=== PATIENT | male | born 1965 ===

== ENCOUNTER 2017-09-02 16:16 | Emergency (ER) | payer OTHER ==
[2017-09-02 16:29] VITALS: BP 121/67; PULSE 72; RESP 16; TEMP 97.2; O2SAT 99
--- NOTE | 2017-09-02 19:02 | ED PDOC ---
HPI: Back Time Seen by Provider: 09/02/17 17:13 Chief Complaint (Nursing): Rib Injury Chief Complaint (Provider): back pain History Per: Patient History/Exam Limitations: no limitations Onset/Duration Of Symptoms: Days (6) Current Symptoms Are (Timing): Still Present Quality Of Discomfort: "Pain" Exacerbating Factor(s): Turning, Movement Additional History Per: Patient Additional Complaint(s): 52yo male with history of hypertension, presents to ED with complaints of left sided back pain, radiating to the front, present for the past 6 days. Patient states the pain is intermittent, achy and worse with laying down or movement. He denies any falls, injury, shortness of breath, nausea, vomiting, fever, chest pain, abdominal pain, dysuria, hematuria, palpitations, leg swelling, or calf pain. he also denies any recent long travels, periods of immobilizations, recent surgeries. Patient states he is compliant with his hypertension medication. He offers no other medical complaints. Past Medical History Reviewed: Historical Data, Nursing Documentation, Vital Signs Vital Signs: Last Vital Signs Temp 97.2 F L 09/02/17 16:27 Pulse 72 09/02/17 16:27 Resp 16 09/02/17 16:27 BP 121/67 09/02/17 16:27 Pulse Ox 99 09/02/17 16:27 - Medical History PMH: HTN - Surgical History Surgical History: No Surg Hx - Family History Family History: States: No Known Family Hx - Social History Current smoker - smoking cessation education provided: Yes Alcohol: None Drugs: Denies - Home Medications Home Medications: Ambulatory Orders Medication Instructions Recorded Meloxicam [Mobic] 15 mg PO DAILY #14 tab 09/02/17 Methocarbamol [Robaxin-750] 750 mg PO BID PRN #10 tab 09/02/17 - Allergies Allergies/Adverse Reactions: Allergies Allergy/AdvReac Type Severity Reaction Status Date / Time No Known Allergies Allergy Verified 09/02/17 16:27 Review of Systems ROS Statement: Except As Marked, All Systems Reviewed And Found Negative Constitutional: Negative for: Fever, Chills Cardiovascular: Negative for: Chest Pain Respiratory: Negative for: Shortness of Breath Gastrointestinal: Negative for: Nausea, Vomiting, Abdominal Pain Musculoskeletal: Positive for: Back Pain. Negative for: Leg Pain Neurological: Negative for: Weakness, Numbness Physical Exam - Reviewed Nursing Documentation Reviewed: Yes Vital Signs Reviewed: Yes - Physical Exam Comments: GENERAL APPEARANCE: Patient is awake, alert, oriented x 3, in no acute distress. Speaking in full sentences, respirations even and nonlabored. SKIN: Warm, dry; (-) cyanosis. EYES: (-) conjunctival pallor. ENMT: Mucous membranes moist. NECK: Supple, FROM (-) tenderness, (-) stiffness, (-) lymphadenopathy, (-) JVD. CHEST AND RESPIRATORY: (-) rash, (-) chest wall tenderness. Lungs: (-) rales , (-) rhonchi, (-) wheezes, (-) rub; breath sounds equal bilaterally. HEART AND CARDIOVASCULAR: (-) irregularity; (-) murmur, (-) gallop, (-) rub. ABDOMEN AND GI: Soft; (-) distention, (-) tenderness, (-) palpable pulsatile mass. BACK: (+)left parathoracic and left lateral rib tenderness (+) left posterior shoulder tenderness (?) left CVA tenderness (-) right CVA tenderness (-) midline tenderness EXTREMITIES: (-) deformity; (-) edema, (-) calf tenderness. (+) distal pulses. (+) FROM bilateral upper extremities with FROM. NEURO AND PSYCH: Mental status as above. Cranial nerves grossly intact; strength symmetric. - Laboratory Results Result Diagrams: 09/02/17 19:04 09/02/17 19:04 - ECG O2 Sat by Pulse Oximetry: 99 (RA) Pulse Ox Interpretation: Normal Medical Decision Making Medical Decision Making: Impression: Upper back pain, likely musculoskeletal Plan: -- Troponin -- CBC -- DDimer -- XR Ribs and Chest -- Flexeril 10 mg PO -- Tramadol 50 mg PO -- Toradol 30 mg IM Of note, patient states he took an Uber here and will not be driving home. Time: 1909 Urinalysis reviewed, negative for glucose, bilirubin, ketones, blood, nitrate or leuks. Time: 2010 XR Chest and Left ribs: no fracture, no dislocation, as read by PA. Upon re-evaluation, patient states he has minimal improvement in his pain. Time: 2099 Upon re-evaluation, patient resting comfortably in ER. He reports significant improvement in his pain. Labs reviewed and grossly unremarkable. Time: 2105 XR Chest and Left Ribs FINDINGS: Lungs: No consolidation. Pleural space: No pleural effusion. No pneumothorax. Heart: No cardiomegaly. Mediastinum: Unremarkable. Bones/joints: Degenerative changes of spine. No acute fracture. IMPRESSION: 1. No definite acute cardiopulmonary disease. 2. If rib pain persists in absence of antecedent trauma, recommend bone scan. 3. Incidental/non-acute findings are described above. Time: 2130 Patient remains awake, alert, oriented x 3 and is laying in bed comfortably. On exam, neck is supple, lungs are clear, abdomen is soft and non tender, heart is at regular rate and rhythm. Repeat neurological exam shows no focal findings. Lab results reviewed, Diagnostic results d/w the patient in great detail. Diagnosis of musculoskeletal back/rib pain d/w the patient. Based on history, exam and diagnostic results, plan will be for outpatient follow up. Advised to follow up with primary care physician in 1-2 days without fail. Advised to take medication as prescribed. Return to the emergency room at any time for any new or worsening symptoms. Patient states he fully agrees with and understands discharge instructions. States that he agrees with the plan and disposition. Verbalized and repeated discharge instructions and plan. I have given the patient opportunity to ask any additional questions. Scribe Attestation: Documented by Priti Kessler acting as a scribe for NAVEED Swan Provider Attestation: All medical record entries made by the Scribe were at my direction and personally dictated by me. I have reviewed the chart and agree that the record accurately reflects my personal performance of the history, physical exam, medical decision making, and the department course for this patient. I have also personally directed, reviewed, and agree with the discharge instructions and disposition. Disposition - Clinical Impression Clinical Impression: Acute back pain, Muscle spasm of back, Rib pain on left side, Muscle strain of chest wall - Patient ED Disposition Is Patient to be Admitted: No Counseled Patient/Family Regarding: Studies Performed, Diagnosis, Need For Followup, Rx Given - [facility]position [facility] Disposition: Routine/Home Disposition Time: 21:33 Condition: STABLE Prescriptions: Meloxicam [Mobic] 15 mg PO DAILY #14 tab Methocarbamol [Robaxin-750] 750 mg PO BID PRN #10 tab PRN Reason: spasm Instructions: Muscle Strain, Chest Pain, Chest Pain That Is Not Caused by the Heart (DC), Upper Back Pain, Muscle Spasms (DC) Forms: [employer] (Armenian) Print Language: NEPALESE - POA Present On Arrival: None Results - Lab Results Lab Results: 09/02/17 09/02/17 09/02/17 19:04 19:04 19:04 WBC 7.0 RBC 5.18 Hgb 14.2 Hct 42.7 MCV 82.5 MCH 27.4 MCHC 33.2 RDW 14.1 Plt Count 270 MPV 8.5 Neut % (Auto) 49.7 L Lymph % (Auto) 36.5 [place] % (Auto) 10.1 H Eos % (Auto) 2.8 Baso % (Auto) 0.9 Neut # (Auto) 3.5 Lymph # (Auto) 2.6 [place] # (Auto) 0.7 Eos # (Auto) 0.2 Baso # (Auto) 0.1 D-Dimer, Quantitative 139 Sodium 142 Potassium 4.7 Chloride 104 Carbon Dioxide 24 Anion Gap 19 BUN 13 Creatinine 0.8 Est GFR ( Amer) > 60 Est GFR (Non-Af Amer) > 60 Random Glucose 92 Calcium 9.8 Total Bilirubin 0.8 AST 27 ALT 55 Alkaline Phosphatase 42 Troponin I < 0.0120 Total Protein 7.9 Albumin 4.5 Globulin 3.4 Albumin/Globulin Ratio 1.3
[2017-09-02 19:09] LABS: BASO # 0.1 K/uL (0.0-0.2); BASO % 0.9 % (0.0-2.0); EOS # 0.2 K/uL (0.0-0.7); EOS % 2.8 % (0.0-4.0); HEMOGLOBIN 14.2 g/dL (12.0-18.0); LYMPH # 2.6 K/uL (1.0-4.3); LYMPH % 36.5 % (20.0-40.0); MEAN CELL VOLUME 82.5 fl (80.0-94.0); MEAN CORPUSCULAR HEMOGLOBIN 27.4 pg (27.0-31.0); MEAN CORPUSCULAR HGB CONC 33.2 g/dL (33.0-37.0); MEAN PLATELET VOLUME 8.5 fl (7.2-11.7); MONO # 0.7 K/uL (0.0-0.8); MONO % 10.1 % (0.0-10.0); NEUT # 3.5 K/uL (1.8-7.0); NEUT % 49.7 % (50.0-75.0); NRBC % 0.8 % (0.0-0.0); RBC 5.18 Mil/uL (4.40-5.90); RED CELL DISTRIBUTION WIDTH 14.1 % (11.5-14.5)
[2017-09-02 19:28] LABS: ALB/GLOB RATIO 1.3 (1.0-2.1); ALBUMIN 4.5 g/dL (3.5-5.0); ALT/SGPT 55 U/L (21-72); AST/SGOT 27 U/L (17-59); BLOOD UREA NITROGEN 13 mg/dl (9-20); CALCIUM 9.8 mg/dL (8.4-10.2); GFR AFRICAN-AMERICAN > 60; GFR NON-AFRICAN AMERICAN > 60
--- NOTE | 2017-09-02 21:08 | RAD ---
EXAM: XR Left Ribs and AP Chest, 3 or More Views CLINICAL HISTORY: 52 years old, male; Pain; Other: Left side rib pain; Additional info: Left sided rib pain TECHNIQUE: Frontal and oblique views of the left ribs and frontal view of the chest. COMPARISON: No relevant prior studies available. FINDINGS: Lungs: No consolidation. Pleural space: No pleural effusion. No pneumothorax. Heart: No cardiomegaly. Mediastinum: Unremarkable. Bones/joints: Degenerative changes of spine. No acute fracture. IMPRESSION: 1. No definite acute cardiopulmonary disease. 2. If rib pain persists in absence of antecedent trauma, recommend bone scan. 3. Incidental/non-acute findings are described above.
== END 2017-09-02 21:45 | disposition home or self-care (01) ==
LOC: H.ER 16:16
DX: M54.9 Dorsalgia, unspecified (principal); M62.830 Muscle spasm of back; R07.9 Chest pain, unspecified; S29.011A Strain of muscle and tendon of front wall of thorax, initial encounter; F17.200 Nicotine dependence, unspecified, uncomplicated; I10 Essential (primary) hypertension
CPT/HCPCS: 71101; 80053; 84484; 85025; 85378; 96372; 99284; J1885

== ENCOUNTER 2018-08-16 20:44 | Emergency (ER) | payer SELFPAY ==
[2018-08-16 20:50] VITALS: O2SAT 98
--- NOTE | 2018-08-16 21:51 | ED PDOC ---
HPI: General Adult Time Seen by Provider: 08/16/18 21:00 Chief Complaint (Nursing): Dizziness/Lightheaded Chief Complaint (Provider): Dizziness History Per: Patient History/Exam Limitations: no limitations Onset/Duration Of Symptoms: Days (last night) Additional Complaint(s): 52 year old male with a history of hypertension presents to the ED with dizziness onset last night. Patient describes dizziness as room spinning sensation. He states dizziness is worse when changing positions and worsened today. Dizziness relieves with rest. Patient denies severe headache, nausea, or vomiting. He states he was having left lateral chest pain but claims it wasnt chest pain. Patient denies shortness of breath, sweats, recent illness, neck stiffness, weakness or numbness. PMD: none provided. Past Medical History Reviewed: Historical Data, Nursing Documentation, Vital Signs Vital Signs: Last Vital Signs Temp 98.2 F 08/16/18 20:48 Pulse 73 08/16/18 20:48 Resp 19 08/16/18 20:48 BP 139/79 08/16/18 20:48 Pulse Ox 98 08/16/18 20:48 - Medical History PMH: HTN - Family History Family History: States: Unknown Family Hx - Home Medications Home Medications: Ambulatory Orders Medication Instructions Recorded Meloxicam [Mobic] 15 mg PO DAILY #14 tab 09/02/17 Methocarbamol [Robaxin-750] 750 mg PO BID PRN #10 tab 09/02/17 Meclizine [Meclizine*] 25 mg PO Q6 #30 tab 08/16/18 - Allergies Allergies/Adverse Reactions: Allergies Allergy/AdvReac Type Severity Reaction Status Date / Time No Known Allergies Allergy Verified 09/02/17 16:27 Review of Systems ROS Statement: Except As Marked, All Systems Reviewed And Found Negative Constitutional: Negative for: Sweats Cardiovascular: Positive for: Chest Pain (left lateral) Gastrointestinal: Negative for: Nausea, Vomiting Musculoskeletal: Positive for: Other (no neck stiffness) Neurological: Positive for: Dizziness. Negative for: Weakness, Numbness, Headache Physical Exam - Reviewed Nursing Documentation Reviewed: Yes Vital Signs Reviewed: Yes - Physical Exam Appears: Positive for: Non-toxic, No Acute Distress Head Exam: Positive for: ATRAUMATIC, NORMOCEPHALIC Skin: Positive for: Normal Color, Warm, Dry Eye Exam: Positive for: EOMI, Normal appearance, PERRL Neck: Positive for: Normal Cardiovascular/Chest: Positive for: Regular Rate, Rhythm. Negative for: Murmur Respiratory: Positive for: Normal Breath Sounds. Negative for: Respiratory Distress Gastrointestinal/Abdominal: Positive for: Normal Exam, Soft. Negative for: Tenderness Back: Positive for: Normal Inspection Extremity: Positive for: Normal ROM (upper and lower). 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 Negative for: Motor/Sensory Deficits, Facial Droop - Laboratory Results Result Diagrams: 08/16/18 21:49 08/16/18 21:49 - ECG O2 Sat by Pulse Oximetry: 98 (RA) Pulse Ox Interpretation: Normal Medical Decision Making Medical Decision Makin52 year old male with hypertension presents with dizziness and chest pain. Dizziness is consistent with positional vertigo, given that symptoms include fatigue. Chest pain is atypical of cardiac chest pain. will obtain blood work, provide symptomatic treatment, and reevaluate. 23:10 Upon provider reevaluation patient is feeling better, is medically stable, and requires no further treatment in the ED at this time. Patient will be discharged home with Rx for Meclizine. Counseling was provided and all questions were answered regarding diagnosis and need for follow up with PMD. There is agreement to discharge plan. Return if symptoms persist or worsen. Scribe Attestation: Documented by Radha Raymundo, acting as a scribe for Devin Keller MD. Provider Scribe Attestation: All medical record entries made by the Scribe were at my direction and personally dictated by me. I have reviewed the chart and agree that the record accurately reflects my personal performance of the history, physical exam, medical decision making, and the department course for this patient. I have also personally directed, reviewed, and agree with the discharge instructions and disposition. Disposition - Clinical Impression Clinical Impression: Dizziness - Patient ED Disposition Is Patient to be Admitted: No - Disposition Referrals: [facility] [Outside] Disposition: Routine/Home Disposition Time: 23:10 Condition: IMPROVED Additional Instructions: ROSY MCBRIDE, thank you for letting us take care of you today. Your provider was Devin Keller MD and you were treated for DIZZINESS. The emergency medical care you received today was directed at your acute symptoms. If you were prescribed any medication, please fill it and take as directed. It may take several days for your symptoms to resolve. Return to the Emergency Department if your symptoms worsen, do not improve, or if you have any other problems. Please contact your doctor or call one of the physicians/clinics you have been referred to that are listed on the Patient Visit Information form that is included in your discharge packet. Bring any paperwork you were given at disch arge with you along with any medications you are taking to your follow up visit. Our treatment cannot replace ongoing medical care by a primary care provider outside of the emergency department. Thank you for allowing the [facility] team to be part of your care today. If you had an X-Ray or CT scan: A Radiologist will review the ED reading if any change in treatment is needed we will contact you. If you had a blood, urine, or wound culture: It will take several days for the results, if any change in treatment is needed we will contact you. If you had an STI test: It will take 48 hours for the results. Please call after 1 week if you have not heard back. Prescriptions: Meclizine [Meclizine*] 25 mg PO Q6 #30 tab Instructions: Vertigo (a Type of Dizziness) Forms: [facility] (Sami)
[2018-08-16 21:56] LABS: HEMOGLOBIN 13.4 g/dL (12.0-18.0); MEAN CELL VOLUME 81.3 fl (80.0-94.0); MEAN CORPUSCULAR HEMOGLOBIN 26.7 pg (27.0-31.0); MEAN CORPUSCULAR HGB CONC 32.8 g/dL (33.0-37.0); RBC 5.02 Mil/uL (4.40-5.90); RED CELL DISTRIBUTION WIDTH 13.8 % (11.5-14.5); WHITE BLOOD COUNT 7.9 K/uL (4.8-10.8)
[2018-08-16 22:06] LABS: BLOOD UREA NITROGEN 14 mg/dl (9-20); CALCIUM 10.1 mg/dL (8.4-10.2); GFR NON-AFRICAN AMERICAN > 60
[2018-08-16 23:47] VITALS: BP 123/78; PULSE 67; RESP 16; TEMP 98.1
--- NOTE | 2018-08-17 08:31 | RAD ---
Date of service: 08/16/2018 HISTORY: dizziness, rib/chest pain COMPARISON: No prior. TECHNIQUE: Chest PA and lateral FINDINGS: LUNGS: No active pulmonary disease. PLEURA: No significant pleural effusion identified. No pneumothorax apparent. CARDIOVASCULAR: No aortic atherosclerotic calcification present. Normal cardiac size. No pulmonary vascular congestion. OSSEOUS STRUCTURES: No significant abnormalities. VISUALIZED UPPER ABDOMEN: Normal. OTHER FINDINGS: None. IMPRESSION: No active disease.
--- NOTE | 2018-08-17 20:06 | CARD ---
APPROVED REPORT Date of service: 08/16/2018 EKG Measurement Heart [id number] <Conclusion> Normal sinus rhythm Nonspecific T wave abnormality Abnormal ECG
== END 2018-08-16 22:49 | disposition home or self-care (01) ==
LOC: H.ER 20:44
DX: R42 Dizziness and giddiness (principal); I10 Essential (primary) hypertension